=== PATIENT | male | born 1945 | race Caucasian/White ===

== ENCOUNTER → 2016-09-11 | Outpatient (CLI) | payer OTHER, MEDICARE | LOC: FIMAGING 12:40 | PROVIDERS: ATTEND Physician Assistant | DX: R93.2 Abnormal findings on diagnostic imaging of liver and biliary tract (principal); N28.1 Cyst of kidney, acquired ==

== ENCOUNTER 2016-10-21 12:39 | Inpatient (IN) | payer OTHER ==
[2016-10-21 12:51] LABS: % IMMATURE GRANULYOCYTES 0.4 % (0.0-1.1); ABSOLUTE IMMATURE GRANULOCYTES 0.04 10^3/uL (0.00-0.10); ADD DIFF? NO; ADD MORPH? NO; ADD SCAN? NO; ATYPICAL LYMPHOCYTE FLAG 0 (0-99); FRAGMENT RBC FLAG 0 (0-99); HEMATOCRIT 38.9 % (40.0-51.0); HEMOGLOBIN 14.3 g/dL (13.7-17.5); LEFT SHIFT FLG 0 (0-99); LIPEMIA HEMOLYSIS FLAG 90 (0-99); MEAN CELL HEMOGLOBIN 36.6 pg (27.9-34.1); MEAN CELL HEMOGLOBIN CONCENTR. 36.8 g/dL (32.4-36.7); MEAN CELL VOLUME 99.5 fL (81.5-99.8); MEAN PLATELET VOLUME 9.9 fL (8.7-11.7); PLATELET CLUMPS FLAG 0 (0-99); PLATELET COUNT 213 10^3/uL (150-400); RED BLOOD CELL COUNT 3.91 10^6/uL (4.40-6.38); RED CELL DISTRIBUTION WIDTH 11.8 % (11.5-15.2)
--- NOTE | 2016-10-21 12:54 | EDPHY ---
H & P Time Seen by Provider: 10/21/16 12:53 HPI/ROS: CHIEF COMPLAINT: Brought to emergency department on M1 hold for failure to thrive HISTORY OF PRESENT ILLNESS: The patient is brought to the emergency department on an M1 hold secondary to failure to thrive. The patient reportedly lives in the assisted housing. The patient reportedly was unable to walk and found covered in feces after somebody reportedly made a welfare check requests with the police department. The patient reportedly told police he has not been able to get out of bed for several days. The patient reportedly has a longstanding history of chronic low back pain and left hip pain. The patient states he typically walks with a cane and that his green pipefitter Dr. Aguilera diagnosed him with a pinched nerve in his back. The patient denies any history of fall or trauma. The patient is deemed to be somewhat of an unreliable historian as the patient reportedly had many empty boxes of wine in his apartment. The patient is unable to articulate whether he has been compliant with any medications. The patient does complain of severe pain in his left hip with any movement. The patient is unable to tell me what medications he typically takes aside from sympathomimetics for attention deficit hyperactivity disorder. REVIEW OF SYSTEMS: A comprehensive 10 point review of systems is otherwise negative aside from elements mentioned in the history of present illness. Source: Patient Exam Limitations: No limitations - Personal History Tetanus Vaccine Date: 2007 - Medical/Surgical History Hx Asthma: No Hx Chronic Respiratory Disease: No Hx Diabetes: No Hx Cardiac Disease: No Hx Renal Disease: No Hx Cirrhosis: No Hx Alcoholism: No Hx HIV/AIDS: No Hx Splenectomy or Spleen Trauma: No Other PMH: DM2, hertditary hemachromatosis, neuropathy, HTN; Bunions; degenerative disc disease; hernia; ETOH; smoker - Social History Smoking Status: Current every day smoker - Physical Exam Exam: General Appearance: Disheveled male, thin, covered in feces Eyes: Pupils equal and round no pallor or injection ENT, Mouth: Mucous membranes dry Respiratory: There are no retractions, lungs are clear to auscultation Cardiovascular: Regular rate and rhythm Gastrointestinal: Abdomen is soft and nontender, no masses, bowel sounds normal Neurological: A&O, normal motor function, normal sensory exam, normal cranial nerves Skin: Warm and dry, no rashes Musculoskeletal: Exquisite tenderness with any range of motion of the left hip Extremities: symmetrical, full range of motion Psychiatric: Patient is oriented X 3, there is no agitation Constitutional: Initial Vital Signs Temperature (C) 36.6 C 10/21/16 12:58 Heart Rate 100 10/21/16 12:58 Respiratory Rate 18 10/21/16 12:58 Blood Pressure 145/95 H 10/21/16 12:58 O2 Sat (%) 92 10/21/16 12:58 O2 Delivery Mode Room Air Allergies/Adverse Reactions: iodine [Iodine] Allergy (Verified 04/04/14 13:10) metoprolol Allergy (Verified 04/04/14 13:10) shellfish Allergy (Uncoded 04/04/14 13:11) Home Medications: Medication Instructions Recorded Methylphenidate HCl [Ritalin 20mg 20 mg PO TID 10/21/16 (*)] Medical Decision Making - Diagnostics EKG Interpretation: EKG: Complete interpretation has been separately recorded in the [facility] archive. Summary impression: Sinus tachycardia, rate 100, nonspecific ST T wave changes are noted Imaging Results: Imaging Impressions Hip X-Ray 10/21/16 13:32 Impression: Proximal left femoral intertrochanteric fracture with comminuted mildly displaced lesser trochanteric butterfly fragment and varus angulation. Chest X-Ray 10/21/16 13:33 Impression: COPD and old granulomatous disease, with no acute abnormality, or substantial change from 04/04/2014. CT head without contrast: Negative for intracranial hemorrhage or other acute traumatic injury. Images reviewed by myself and discussed with radiologist Dr. Larry Wooten. CT neck without contrast: Negative for acute fracture. Multilevel DJD noted. Images reviewed by myself and discussed with radiologist Dr. Larry Wooten. ED Course/Re-evaluation: The patient presents to the ED with failure to thrive, alcohol intoxication and a left hip fracture of unknown chronicity. The patient will require admission to the hospital. Consultation was made with Dr. Santos from Orthopedic surgery who will see the patient tomorrow. The patient is not been medically cleared for surgery and is currently intoxicated. Consultation is made with the hospitalist service for admission at 3:00 p.m.. The patient did comment on an M1 psychiatric hold which I have vacated is the patient clearly presents to the ED with failure to thrive and a hip fracture and not a primary psychiatric illness. Given the fact the patient is a non reliable historian he was taken for a CT scan of the head and cervical spine which demonstrated no evidence of an acute fracture. There is no evidence of an intracranial hemorrhage. Consultation was made with Dr. Nathan from the hospitalist service who will admit the patient this evening. The patient will not undergo ORIF this evening. Differential Diagnosis: Differential diagnosis considered includes hip fracture, pelvic fracture, alcohol intoxication, critical anemia, GI bleed, arrhythmia, malnutrition, dehydration - Data Points Laboratory Results: Laboratory Results 10/21/16 12:45 10/21/16 12:45 10/21/16 10/21/16 12:45 12:45 WBC 9.22 10^3/uL 10^3/uL (3.80-9.50) RBC 3.91 10^6/uL L 10^6/uL (4.40-6.38) Hgb 14.3 g/dL g/dL (13.7-17.5) Hct 38.9 % L % (40.0-51.0) MCV 99.5 fL fL (81.5-99.8) MCH 36.6 pg H pg (27.9-34.1) MCHC 36.8 g/dL H g/dL (32.4-36.7) RDW 11.8 % % (11.5-15.2) Plt Count 213 10^3/uL 10^3/uL (150-400) MPV 9.9 fL fL (8.7-11.7) Neut % (Auto) 59.1 % % (39.3-74.2) Lymph % (Auto) 24.2 % % (15.0-45.0) [place] % (Auto) 12.4 % % (4.5-13.0) Eos % (Auto) 3.4 % % (0.6-7.6) Baso % (Auto) 0.5 % % (0.3-1.7) Nucleat RBC Rel Count 0.0 % % (0.0-0.2) Absolute Neuts (auto) 5.45 10^3/uL 10^3/uL (1.70-6.50) Absolute Lymphs (auto) 2.23 10^3/uL 10^3/uL (1.00-3.00) Absolute Monos (auto) 1.14 10^3/uL H 10^3/uL (0.30-0.80) Absolute Eos (auto) 0.31 10^3/uL 10^3/uL (0.03-0.40) Absolute Basos (auto) 0.05 10^3/uL 10^3/uL (0.02-0.10) Absolute Nucleated RBC 0.00 10^3/uL 10^3/uL (0-0.01) Immature Gran % 0.4 % % (0.0-1.1) Immature Gran # 0.04 10^3/uL 10^3/uL (0.00-0.10) Sodium 133 mEq/L L mEq/L (134-144) Potassium 5.1 mEq/L mEq/L (3.5-5.2) Chloride 95 mEq/L L mEq/L (97-110) Carbon Dioxide 18 mEq/l L mEq/l (22-31) Anion Gap 20 mEq/L H mEq/L (8-16) BUN 14 mg/dL mg/dL (7-23) Creatinine 0.8 mg/dL mg/dL (0.7-1.3) Estimated GFR > 60 Glucose 107 mg/dL H mg/dL (70-100) Calcium 9.1 mg/dL mg/dL (8.5-10.4) Total Bilirubin 3.0 mg/dL H mg/dL (0.1-1.4) Conjugated Bilirubin 0.7 mg/dL H mg/dL (0.0-0.5) Unconjugated Bilirubin 2.3 mg/dL H mg/dL (0.0-1.1) AST 76 IU/L H IU/L (17-59) ALT 65 IU/L IU/L (21-72) Alkaline Phosphatase 115 IU/L IU/L (38-126) Total Protein 6.8 g/dL g/dL (6.3-8.2) Albumin 4.0 g/dL g/dL (3.5-5.0) Ethyl Alcohol 122 mg/dL H mg/dL (0-10) Medications Given: Discontinued Medications Sodium Chloride (Ns) 1,000 mls @ 3,000 mls/hr IV ONCE ONE Stop: 10/21/16 15:33 Last Admin: 10/21/16 15:41 Dose: 1,000 mls Morphine Sulfate (Morphine) 5 mg IVP EDNOW ONE Stop: 10/21/16 14:38 Last Admin: 10/21/16 14:47 Dose: Not Given Morphine Sulfate (Morphine) 4 mg IVP EDNOW ONE Stop: 10/21/16 14:41 Last Admin: 10/21/16 14:41 Dose: 4 mg Morphine Sulfate (Morphine) 4 mg IVP EDNOW ONE Stop: 10/21/16 16:12 Last Admin: 10/21/16 16:24 Dose: 4 mg Departure - Departure Disposition: [facility] Acute Clinical Impression: Alcoholic intoxication, Fracture, intertrochanteric, left femur Condition: Fair
[2016-10-21 13:03] LABS: ALANINE AMINOTRANSFERASE 65 IU/L (21-72); ALKALINE PHOSPHATASE 115 IU/L (38-126); ANION GAP 20 mEq/L (8-16); ASPARTATE AMINOTRANSFERASE 76 IU/L (17-59); CALCIUM 9.1 mg/dL (8.5-10.4); CARBON DIOXIDE 18 mEq/l (22-31); CHLORIDE 95 mEq/L (97-110); CREATININE 0.8 mg/dL (0.7-1.3); ETHANOL SERUM 122 mg/dL (0-10); GLOMERULAR FILTRATION RATE > 60; GLUCOSE 107 mg/dL (70-100); POTASSIUM 5.1 mEq/L (3.5-5.2); SODIUM 133 mEq/L (134-144); TOTAL PROTEIN 6.8 g/dL (6.3-8.2)
[2016-10-21 13:12] LABS: BILIRUBIN-CONJUGATED 0.7 mg/dL (0.0-0.5); BILIRUBIN-UNCONJUGATED 2.3 mg/dL (0.0-1.1)
[2016-10-21] MEDS ORDERED: NS 1,000 ML IV ONE (15:14)
[2016-10-21] MEDS ORDERED: ONDANSETRON DISINTEGRATING 4 MG TAB PO PRN (15:14)
[2016-10-21] MEDS ORDERED: ACETAMINOPHEN 325 MG TAB PO PRN (15:14)
[2016-10-21] MEDS ORDERED: ONDANSETRON 4 MG/2 ML VIAL IVP PRN (15:14)
[2016-10-21] MEDS ORDERED: LORazepam 2 MG/ML INJ IVP PRN (15:17)
--- NOTE | 2016-10-21 15:33 | CPEKG ---
Heart Rate: 100 RR Interval: 600 P-R Interval: 176 QRSD Interval: 70 QT Interval: 368 QTC Interval: 475 P [place]: 69 QRS [place]: -22 T Wave [place]: 80 EKG Severity - BORDERLINE ECG - EKG Impression: SINUS TACHYCARDIA EKG Impression: BORDERLINE LEFT AXIS DEVIATION EKG Impression: LOW VOLTAGE IN FRONTAL LEADS EKG Impression: BORDERLINE T ABNORMALITIES, ANT-LAT LEADS Electronically Signed By: Carrington Calixto 21-Oct-2016 15:34:13
--- NOTE | 2016-10-21 15:45 | SOAPPROG ---
GEMA Progress Note Assessment/Plan: Assessment: Left hip fx Plan: I will get a CT to eval the full extent and chronicity will require surgery likely tomorrow if can be medically cleared full consult to follow 10/21/16 15:44 Objective: Vital Signs Temp Pulse Resp BP Pulse Ox 36.6 C 100 18 145/95 H 92 10/21/16 12:58 10/21/16 12:58 10/21/16 12:58 10/21/16 12:58 10/21/16 12:58 ICD10 Worksheet Patient Problems: Problems Problem Status Onset Alcoholic intoxication Acute Fracture, intertrochanteric, left femur Acute ADD (attention deficit disorder) Acute Alcohol withdrawal Acute Chest pain Acute
--- NOTE | 2016-10-21 17:16 | GHP ---
[f rep st] HISTORY AND PHYSICAL DATE OF ADMISSION: 10/21/2016 CHIEF COMPLAINT: Found down. HISTORY OF PRESENT ILLNESS: This is a 71-year-old male with a history of alcohol abuse, who had a w elfare check performed by police today on the request of loved ones. The patient was found confused , covered in feces, complaining of pain. The patient was brought to the emergency department [facility] to complain of pain without clear reportable trauma or fall. The patient was found to have a p roximal left femur fracture, and is being admitted for orthopedic consultation. In the emergency de partment, the patient is endorsing pain of the left leg. Denies any chest pain. Denies shortness o f breath. Denies nausea. Denies vomiting. Denies dysuria, recent hematuria, lower extremity edema , or known rashes. The patient reports he has been drinking steadily with also recreational use of marijuana recently, normal levels. He is not able to give me a clear picture of what his most recen t history has been in the past 24-72 hours. PAST MEDICAL HISTORY: 1. Alcohol abuse with history of withdrawal. 2. Diabetes mellitus. 3. Hereditary hemochromatosis. 4. Chronic neuropathy. 5. Hypertension. 6. Degenerative disk disease. SOCIAL HISTORY: The patient lives alone. Drinks alcohol heavily, although he reports a half a pint of red wine a day. Smokes a pack of cigarettes per week. Denies illicit drugs, but does report chel th eating and smoking marijuana recreationally. FAMILY HISTORY: Positive for alcoholism in the father, as well as diabetes. ADVANCED DIRECTIVES: The patient is full cor, full tube. REVIEW OF SYSTEMS: A 10-point review of systems is negative with the exception of that reported in the HPI. PHYSICAL EXAMINATION: VITAL SIGNS: Blood pressure 144/96, heart rate 100, respiratory rate 16, 92% on room air 36.7. GENERAL: This is a thin appearing middle-aged male lying flat in bed. HEENT: Notable for dry mucous membranes. Eye exam is negative for any icterus. CARDIAC: The patient is t achycardic, but regular. PULMONARY: Good respiratory effort. Clear to auscultation bilaterally. GASTROINTESTINAL: Positive bowel sounds. ABDOMEN: Soft and nontender. MUSCULOSKELETAL: The patient is tender on passive range of motion of the left leg. No edema is diana reciated. SKIN: The patient has scattered excoriations. NEUROLOGIC: The patient does not have a tremor actively or tongue fasciculations. PSYCHIATRIC: He seems anxious on my examination. DATA: White count 9.2, hematocrit 38.9, platelets of 211, sodium 133, creatinine 0.8, anion gap of 20, bilirubin of 3, AST of 76, ethyl alcohol of 122. Hip x-ray on the left, which I personally reviewed and interpreted, does show a proximal femur fract ure. ASSESSMENT AND PLAN: This is a 71-year-old male with alcoholism, presenting with hip fracture. 1. Acute left intertrochanteric fracture. The patient is not able to give us a clear timeline, how ever does have acute pain. We will order CT imaging per Dr. Santos, and plan for surgical intervent ion tomorrow. We will see the patient today and make n.p.o. after midnight for anticipated intraope rative repair. 2. Alcohol abuse. The patient does not appear to be actively be withdrawn, but does describe a his tory of alcohol withdrawal in the past. I suspect he drinks far more than the half pint of wine he is reporting. We will schedule Librium [address] and [address] the patient on CIWA protocol symptom dosing. Give IV thiamin, and monitor his laboratories closely. My hope is with Librium we can keep him stable in the next 24 hours so that he is prepared for the operating room. 3. Anion gap metabolic acidosis. I suspect this is likely starvation ketosis. We will aggressivel y fluid resuscitate and follow his labs in the morning. 4. Diabetes mellitus. The patient reports being diet controlled. We will follow his blood sugars, currently 107. We will avoid sliding scale if we can. Treat with low-dose lispro. 5. Hyponatremia, acute, suspect volume related. We will fluid resuscitate with normal saline and r echeck in the morning. 6. Mild transaminitis, suspect this is alcohol related liver dysfunction. 7. Prophylaxis: We will give a dose of Lovenox today, and then hold for the operating room tomorro w. 8. Diet: Regular now, n.p.o. after midnight. DISPOSITION: I expect greater than 2 midnights, as the patient is presenting with acute hip fractur e requiring surgical intervention. I have discussed the case with the emergency room physician. Th e patient will be triaged to the medical-surgical floor for care. /[id number]/MODL
[2016-10-21] MEDS: chlordiazePOXIDE 25 MG CAP PO SCH ×2 (17:20→21:25)
[2016-10-21] MEDS: HYDROCODONE/APAP 5/325 TAB PO PRN ×2 (17:20→22:38)
[2016-10-21] MEDS: THIAMINE HCL 500 MG in NS 100 ML IV SCH (17:22)
[2016-10-21] MEDS ORDERED: D50W 25 GM/50 ML SYR IVP PRN (19:28)
--- NOTE | 2016-10-21 21:02 | GCON ---
[f rep st] CONSULTATION DATE OF CONSULTATION: 10/21/2016 DIAGNOSIS: Left hip fracture. CHIEF COMPLAINT: Left hip fracture. HISTORY OF PRESENT ILLNESS: This is a 71-year-old male, who was found in his apartment intoxicated, and with empty bottles of wine scattered about his apartment. He is unable to ambulate and was bro ught in for evaluation. He was diagnosed in the emergency room with a left trochanteric hip fractur e. Per report, his self-care and living situation were quite poor. He is admitted to the hospital by the hospitalist service. He complains really of just left hip pain. He does not know when he ma y have fractured it. He says as of 2 days ago he was able to bear weight. He has had pain in the h ip now for a number of months. He denies being able to bear weight now. PAST MEDICAL HISTORY: Attention deficit disorder and alcoholism. PAST SURGICAL HISTORY: He cannot recall any surgeries that he has had, though he thinks he may have had some. ALLERGIES: Iodine. MEDICATIONS: He takes methylphenidate for ADD. FAMILY HISTORY: He is unsure of his family history. SOCIAL HISTORY: Significant for alcoholism. REVIEW OF SYSTEMS: Negative except for the HPI. It is difficult to obtain a complete review of sys tems on him. PHYSICAL EXAMINATION: GENERAL: He is alert. He is chronically ill appearing. He is slightly conf used. HEAD: Normocephalic and atraumatic. His eyes are equal and reactive. His mouth shows moist mucous membranes. NECK: Supple. LUNGS: Good inspiratory effort. HEART: Regular rate and rhythm . ABDOMEN: Soft. EXTREMITIES: Upper extremities are without abrasion or abnormality. He can mov e his shoulders, elbows, and hands well. He has 5/5 strength moving his fingers. His left hip is s itting externally rotated. Any attempt to touching this causes exquisite pain. He does have pain r adiating down his femur. He has no tenderness lower in his knee or his tibia or his foot. He can w iggle his toes. His right lower extremity he can move without pain. DIAGNOSTIC STUDIES: His plain films and subsequent CT scan show an intertrochanteric fracture of th e left hip, as well as DJD. I do believe this to be only somewhat acute based on the imaging. ASSESSMENT: Left intertrochanteric hip fracture. PLAN: He is admitted to the hospitalist service. He will undergo a medical workup. We will plan o n operative intervention for the hip fracture, if he is medically stable, likely tomorrow. This rach l involve a left TF and nail. I talked to him about the risks and benefits of surgery, and he does wish to proceed at this time. Discussed the risks of nonunion, malunion, continued pain, need for r eplacement, heart attack, stroke, and even , as well as a blood clot. He elected to proceed. /[id number]/MODL
[2016-10-22 02:22] LABS: % IMMATURE GRANULYOCYTES 0.3 % (0.0-1.1); ABSOLUTE IMMATURE GRANULOCYTES 0.02 10^3/uL (0.00-0.10); ADD DIFF? NO; ADD MORPH? NO; ADD SCAN? NO; ATYPICAL LYMPHOCYTE FLAG 0 (0-99); FRAGMENT RBC FLAG 0 (0-99); HEMATOCRIT 34.8 % (40.0-51.0); HEMOGLOBIN 12.6 g/dL (13.7-17.5); LEFT SHIFT FLG 0 (0-99); LIPEMIA HEMOLYSIS FLAG 90 (0-99); MEAN CELL HEMOGLOBIN 36.7 pg (27.9-34.1); MEAN CELL HEMOGLOBIN CONCENTR. 36.2 g/dL (32.4-36.7); MEAN CELL VOLUME 101.5 fL (81.5-99.8); MEAN PLATELET VOLUME 9.8 fL (8.7-11.7); PLATELET CLUMPS FLAG 0 (0-99); PLATELET COUNT 175 10^3/uL (150-400); RED BLOOD CELL COUNT 3.43 10^6/uL (4.40-6.38)
[2016-10-22 02:34] LABS: ANION GAP 11 mEq/L (8-16); CALCIUM 7.8 mg/dL (8.5-10.4); CARBON DIOXIDE 21 mEq/l (22-31); CHLORIDE 101 mEq/L (97-110); CREATININE 0.6 mg/dL (0.7-1.3); GLOMERULAR FILTRATION RATE > 60; GLUCOSE 110 mg/dL (70-100); MAGNESIUM 1.7 mg/dL (1.6-2.3); POTASSIUM 4.8 mEq/L (3.5-5.2); SODIUM 133 mEq/L (134-144)
[2016-10-22] MEDS: HYDROCODONE/APAP 5/325 TAB PO PRN ×4 (05:40→23:13)
[2016-10-22] MEDS: ENOXAPARIN 40 MG/0.4 ML SYR SC SCH (07:26)
[2016-10-22] MEDS: INSULIN LISPRO 100 UNIT/ML SC SCH ×3 (07:41→19:58)
[2016-10-22] MEDS: NICOTINE 14 MG/24 HR PATCH TD SCH (08:04)
[2016-10-22] MEDS: chlordiazePOXIDE 25 MG CAP PO SCH ×3 (08:04→23:14)
[2016-10-22] MEDS: THIAMINE HCL 500 MG in NS 100 ML IV SCH (09:37)
--- NOTE | 2016-10-22 14:36 | HOSPPROG ---
Hospitalist Progress Note Assessment/Plan: DIAGNOSES: # INTERTROCH HIP FX # ALCOHOL ABUSE -w HR 105 he may be having mild withdrawal at present; is getting scheduled benzo # FAILURE TO THRIVE # METABOLIC ACIDOSIS # HYPONATREMIA # DIABETES MELLITUS? # ?ADD PLANS: -continue CIWA -thiamine daily -DVT proph -care of fx per ortho, to OR today -will likely need eventual SNF SUBJECTIVE: states pain "not too bad" seems disoriented however denies sob or chest sxs no nausea OBJECTIVE: vitals: some mild HTN and borderline tachycardia, otherwise stable Exam: alert, relaxed, no tremor, somewhat disoriented and delusional skin warm dry no jaundice resps easy lungs clear heart reg no edema Lab data: mild hyperglycemia mild hyponatremia otherwise stable Objective: Vital Signs Temp Pulse Resp BP Pulse Ox 37.0 C 105 H 14 144/97 H 93 10/22/16 11:22 10/22/16 11:22 10/22/16 11:22 10/22/16 11:22 10/22/16 11:22 Laboratory Results 10/22/16 02:15 10/22/16 02:15 10/21/16 10/22/16 10/23/16 06:59 06:59 06:59 Intake Total 600 100 Output Total 1175 100 Balance -575 0 ICD10 Worksheet Patient Problems: Problems Problem Status Onset Alcoholic intoxication Acute Fracture, intertrochanteric, left femur Acute ADD (attention deficit disorder) Acute Alcohol withdrawal Acute Chest pain Acute
[2016-10-22] MEDS ORDERED: ceFAZolin 2 GM/DEXTROSE 100 ML IV ONE (14:58)
[2016-10-22] MEDS ORDERED: BUPIVACAINE/EPI 0.5% 30 ML SDV ONE (15:59)
--- NOTE | 2016-10-22 16:34 | SOAPPROG ---
SOAP Progress Note Assessment/Plan: Assessment: Left hip fx Plan: OR for TFN nail on withdrawl protocol Subjective: pain in left hip Objective: Vital Signs Temp Pulse Resp BP Pulse Ox 36.6 C 107 H 16 136/98 H 94 10/22/16 15:16 10/22/16 16:00 10/22/16 16:00 10/22/16 16:00 10/22/16 16:00 Laboratory Results 10/22/16 02:15 10/22/16 02:15 10/21/16 10/22/16 10/23/16 05:59 05:59 05:59 Intake Total 600 100 Output Total 1175 400 Balance -575 -300 left hip held in external rotation ICD10 Worksheet Patient Problems: Problems Problem Status Onset Alcoholic intoxication Acute Fracture, intertrochanteric, left femur Acute ADD (attention deficit disorder) Acute Alcohol withdrawal Acute Chest pain Acute
--- NOTE | 2016-10-22 16:40 | PDANEPAE ---
ANE History of Present Illness hip fracture, L ANE Past Medical History - Cardiovascular History Hx Hypertension: Yes - Pulmonary History Hx Oxygen in Use at Home: No Hx Sleep Apnea: No Sleep Apnea Screening Result - Last Documented: Positive - Endocrine History Hx Diabetes: No - Neurological & Psychiatric Hx Hx Neurological and Psychiatric Disorders: Yes Neurological / Psychiatric History Comment: Hx of ADD. Patient reports problems remembering - GI History GERD: no Gastrointestinal History Comment: chronic alcohol use: about 1/2 pint of wine/ day - Chronic Pain History Chronic Pain: Yes ANE Review of Systems - Exercise capacity Exercise capacity: >=4 METS ANE Patient History - Allergies Allergies/Adverse Reactions: iodine [Iodine] Allergy (Verified 04/04/14 13:10) metoprolol Allergy (Verified 04/04/14 13:10) shellfish Allergy (Uncoded 04/04/14 13:11) - Home Medications Home Medications: Methylphenidate HCl [Ritalin 20mg (*)] 20 mg PO TID 10/21/16 [Last Taken ] - NPO status NPO Since - Liquids (Date): 10/22/16 NPO Since - Liquids (Time): 00:00 NPO Since - Solids (Date): 10/22/16 NPO Since - Solids (Time): 00:00 - Smoking Hx Smoking Status: Current every day smoker (smoking since age 16, reports about 1/ 2 ppw for the last 15 years) ANE Labs/Vital Signs - Labs Result Diagrams: 10/22/16 02:15 10/22/16 02:15 - Vital Signs Blood Pressure: 136/98 Heart Rate: 107 Respiratory Rate: 16 O2 Sat (%): 94 Height: 182.88 cm Weight: 76.975 kg ANE Physical Exam - Airway Neck exam: FROM Mouth exam: poor dentition - Pulmonary Pulmonary: clear to auscultation - Cardiovascular Cardiovascular: regular rate and rhythym - ASA Status ASA Status: III ANE Anesthesia Plan Anesthesia Plan: general endotracheal anesthesia
[2016-10-22] MEDS ORDERED: LR 1,000 ML IV ONE (16:42)
[2016-10-22] MEDS ORDERED: PROPOFOL 200 MG/20 ML VIAL ONE (16:53)
[2016-10-22] MEDS ORDERED: fentaNYL 100 MCG/2 ML INJ ONE ×3 (16:53→18:56)
[2016-10-22] MEDS ORDERED: ROCURONIUM 50 MG/5 ML VIAL ONE (16:54)
[2016-10-22] MEDS ORDERED: PHENYLEPHRINE HCL 100 MCG/ML SYR ONE (17:14)
[2016-10-22] MEDS ORDERED: ONDANSETRON 4 MG/2 ML VIAL ONE (18:03)
[2016-10-22] MEDS ORDERED: GLYCOPYRROLATE 0.2 MG/1 ML VIAL ONE (18:06)
[2016-10-22] MEDS ORDERED: NEOSTIGMINE METHYLSULFATE 5 MG/5 ML SYR ONE (18:06)
--- NOTE | 2016-10-22 18:24 | POSTOPPROG ---
Post Op Note Date of Operation: 10/22/16 Surgeon: Saud Santos Anesthesiologist: betty Pre-op Diagnosis: left IT fx Post-op Diagnosis: same Indication: above Procedure: ORIF left hip fracture TFN Findings: fx Inf/Abcess present in the surg proc area at time of surgery?: No EBL: Minimal
[2016-10-22] MEDS ORDERED: NALOXONE HCL 0.4 MG/ML INJ IVP PRN (18:29)
[2016-10-22] MEDS: fentaNYL 100 MCG/2 ML INJ IVP PRN ×2 (18:56→19:02)
--- NOTE | 2016-10-22 19:58 | POSTANESTH ---
Post Anesthetic Evaluation Cardiovascular Status: Similar to Pre-Op Cond Respiratory Status: Similar to Pre-op Cond. Level of Consciousness/Mental Status: Mildly Sleepy, Arousable Pain Control: Adequate, Prn Tx Ordered Nausea/Vomiting Control: Adequate, Prn Tx Ordered Complications Possibly Related to Anesthesia: None Noted
[2016-10-22] MEDS ORDERED: PNEUMOC 13-VAL CONJ-DIP CRM/PF 0.5 ML SYR IM ONE (23:46)
--- NOTE | 2016-10-23 02:11 | GOP ---
[f rep st] OPERATIVE REPORT DATE OF OPERATION: 10/22/2016 SURGEON: Saud Santos MD ACCOUNTING MACHINE MECHANIC: None. ANESTHESIA: General. PREOPERATIVE DIAGNOSIS: Left intertrochanteric hip fracture. POSTOPERATIVE DIAGNOSIS: Left intertrochanteric hip fracture. PROCEDURE PERFORMED: Open reduction and internal fixation left intertrochanteric hip fracture. FINDINGS: ESTIMATED BLOOD LOSS: 20 mL. INDICATIONS: A 71-year-old male who was brought in, found intoxicated in his apartment, unable to ambulate. He is unsure when he broke his hip but was diagnosed with a hip fracture. I did feel this was at least semi acute in talking to him. Exquisite pain. Counseled risks and benefits of operative procedure, including nonunion, malunion, pain, need for replacement, failure, refracture. Elected to proceed. Informed consent was obtained. All questions were answered. He was marked preoperatively. DESCRIPTION OF PROCEDURE: He was taken to the preoperative suite. Anesthesia was induced. Ancef was administered. He was positioned on the fracture table. A time-out was performed verifying side, site, agreement by everyone on the team. I was able to reduce the fracture by using the fracture table to manipulate the fragment, centrally rotate using traction. Satisfied with this on the AP and lateral x-rays, prepped and draped, began the surgery by establishing that side of the guidepin, made incision in this area. I checked this on AP and lateral x-ray and the guidepin on the canal. Checked this on x- ray, used the anterior reamer. Selected the 11 mm nail, placed this down the canal. Brought this to the proper height, used the trocar for the distal blade. Brought this to bone. Placed a guidepin up this and checked this on AP and lateral x-ray, and then used a reamer to ream this. Selected a 105 blade, and this was placed into place. The blade was locked in place and dynamically locked. A distal interlock screw was drilled using a trocar and sleeve and placed. Final x-rays were taken. The construct was stable. It was closed after irrigation with 0 Vicryl, 2-0 Vicryl, 3-0 Monocryl, Dermabond, was taken to PACU in stable condition. IMPLANTS: Synthes TFN nail, 11 mm short nail, and a 40 mm locking screw. COMPLICATIONS: None. DRAINS: None specimen. CONDITION: Stable. /[id number]/MODL MTDD
[2016-10-23] MEDS: HYDROCODONE/APAP 5/325 TAB PO PRN ×4 (03:05→16:04)
[2016-10-23 05:53] LABS: MAGNESIUM 1.7 mg/dL (1.6-2.3)
[2016-10-23] MEDS: THIAMINE HCL 500 MG in NS 100 ML IV SCH (07:56)
[2016-10-23] MEDS: ENOXAPARIN 40 MG/0.4 ML SYR SC SCH (08:03)
[2016-10-23] MEDS: chlordiazePOXIDE 25 MG CAP PO SCH ×3 (08:03→21:42)
[2016-10-23] MEDS: NICOTINE 14 MG/24 HR PATCH TD SCH (08:03)
[2016-10-23] MEDS: INSULIN LISPRO 100 UNIT/ML SC SCH ×3 (08:59→16:26)
--- NOTE | 2016-10-23 13:05 | SOAPPROG ---
SOAP Progress Note Assessment/Plan: Assessment: Left hip fx Plan: TFN 10/22 wbat ice rom as tolerated ptOT dvt prophalxis 10/23/16 13:04 Subjective: pain in hip Objective: Vital Signs Temp Pulse Resp BP Pulse Ox 36.8 C 109 H 14 124/95 H 92 10/23/16 12:12 10/23/16 12:48 10/23/16 12:12 10/23/16 12:12 10/23/16 12:48 Laboratory Results 10/22/16 02:15 10/22/16 02:15 10/22/16 10/23/16 10/24/16 05:59 05:59 05:59 Intake Total 600 1030 Output Total 1175 1200 Balance -575 -170 dressing dry nvi ICD10 Worksheet Patient Problems: Problems Problem Status Onset Alcoholic intoxication Acute Fracture, intertrochanteric, left femur Acute ADD (attention deficit disorder) Acute Alcohol withdrawal Acute Chest pain Acute
--- NOTE | 2016-10-23 18:00 | HOSPPROG ---
Hospitalist Progress Note Assessment/Plan: DIAGNOSES: # INTERTROCH HIP FX # ALCOHOL ABUSE, MILD ALCOHOL WITHDRAWAL CURRENTLY ON BENZODIAZEPINE - still some tachycardia and delusional thoughts # FAILURE TO THRIVE # METABOLIC ACIDOSIS # HYPONATREMIA # DIABETES MELLITUS? # ?ADD PLANS: -continue CIWA -thiamine daily -DVT proph -OT and PT -will likely need eventual SNF - I did talk with him today about his alcohol use in the dangers that presents for him and he does understand this and agrees that he should try to quit at this time SUBJECTIVE: status post nailing of femur yesterday, pain not better in bed but hurts quite a bit when he stands on the leg No shortness of breath chest pain Not anxious Eating OBJECTIVE: vitals: some tachycardia, otherwise stable CIWA scores low so far on current scheduled benzodiazepine Exam: alert, relaxed, no tremor, Overall better oriented but still with some delusions skin warm dry no jaundice resps easy lungs clear heart reg no edema Objective: Vital Signs Temp Pulse Resp BP Pulse Ox 36.5 C 102 H 19 109/83 H 88 L 10/23/16 15:41 10/23/16 15:41 10/23/16 15:41 10/23/16 15:41 10/23/16 15:41 Laboratory Results 10/22/16 02:15 10/22/16 02:15 10/22/16 10/23/16 10/24/16 06:59 06:59 06:59 Intake Total 600 1030 100 Output Total 1175 1200 Balance -575 -170 100 ICD10 Worksheet Patient Problems: Problems Problem Status Onset Alcoholic intoxication Acute Fracture, intertrochanteric, left femur Acute ADD (attention deficit disorder) Acute Alcohol withdrawal Acute Chest pain Acute
[2016-10-24] MEDS: HYDROCODONE/APAP 5/325 TAB PO PRN ×5 (00:25→17:52)
[2016-10-24 05:37] LABS: MAGNESIUM 1.7 mg/dL (1.6-2.3)
--- NOTE | 2016-10-24 07:32 | SOAPPROG ---
SOAP Progress Note Assessment/Plan: Assessment: Left hip fx Plan: TFN 10/22 wbat ice rom as tolerated ptOT dvt prophalxis may d/c when medically indicated, f/u with me in 1 week [phone] for appt 10/23/16 13:04 10/24/16 07:31 Subjective: min pain Objective: Vital Signs Temp Pulse Resp BP Pulse Ox 36.7 C 87 16 132/91 H 92 10/24/16 07:21 10/24/16 07:21 10/24/16 07:21 10/24/16 07:21 10/24/16 07:21 Laboratory Results 10/22/16 02:15 10/22/16 02:15 10/23/16 10/24/16 10/25/16 05:59 05:59 05:59 Intake Total 1030 500 Output Total 1200 402 Balance -170 98 dressing dry can move hip ICD10 Worksheet Patient Problems: Problems Problem Status Onset Alcoholic intoxication Acute Fracture, intertrochanteric, left femur Acute ADD (attention deficit disorder) Acute Alcohol withdrawal Acute Chest pain Acute
[2016-10-24] MEDS: INSULIN LISPRO 100 UNIT/ML SC SCH ×3 (08:33→17:42)
[2016-10-24] MEDS: NICOTINE 14 MG/24 HR PATCH TD SCH (09:30)
[2016-10-24] MEDS: ENOXAPARIN 40 MG/0.4 ML SYR SC SCH (09:35)
[2016-10-24] MEDS: chlordiazePOXIDE 25 MG CAP PO SCH (09:35)
[2016-10-24] MEDS: THIAMINE HCL 100 MG TAB PO SCH (09:35)
--- NOTE | 2016-10-24 14:41 | HOSPPROG ---
Hospitalist Progress Note Assessment/Plan: DIAGNOSES: # INTERTROCH HIP FX # ALCOHOLISM, MILD ALCOHOL WITHDRAWAL CURRENTLY ON BENZODIAZEPINE - tachycardia and loosens resolve, is relaxed, at this point will try off benzodiazepine # FAILURE TO THRIVE # METABOLIC ACIDOSIS # HYPONATREMIA # DIABETES MELLITUS? # ?ADD PLANS: -continue CIWA, trial off benzodiazepine -thiamine daily -DVT proph -OT and PT -will likely need eventual SNF -I have reviewed with him today his alcohol use and the dangers that presents for him and he does understand this and agrees that he should try to quit at this time DISPOSITION: Would like to observe 1 day off benzodiazepine before sending him to [facility] facility SUBJECTIVE: Still with quite a bit of pain with any movement of his leg but is working with PT No nausea vomiting chest pain or shortness of breath OBJECTIVE: vitals: blood pressure pulse of stabilized nicely, otherwise normal without fever ROGELIO scores low so far on current scheduled benzodiazepine Exam: alert, relaxed, no tremor, better oriented today No tremor skin warm dry no jaundice resps easy lungs clear heart reg mild edema of his leg laboratory data: Sugars remain in good range Objective: Vital Signs Temp Pulse Resp BP Pulse Ox 36.7 C 97 16 124/96 H 80 L 10/24/16 11:12 10/24/16 11:12 10/24/16 11:12 10/24/16 11:12 10/24/16 11:12 Laboratory Results 10/22/16 02:15 10/22/16 02:15 10/23/16 10/24/16 10/25/16 06:59 06:59 06:59 Intake Total 1030 500 Output Total 1200 402 Balance -170 98 ICD10 Worksheet Patient Problems: Problems Problem Status Onset Alcoholic intoxication Acute Fracture, intertrochanteric, left femur Acute ADD (attention deficit disorder) Acute Alcohol withdrawal Acute Chest pain Acute
[2016-10-25] MEDS: HYDROCODONE/APAP 5/325 TAB PO PRN ×4 (00:59→15:33)
[2016-10-25 08:03] VITALS: BP 127/82; RESP 16; TEMP 97.7; O2SAT 92
--- NOTE | 2016-10-25 08:34 | SOAPPROG ---
SOAP Progress Note Assessment/Plan: Assessment: Left hip fx Plan: TFN 10/22 wbat ice rom as tolerated ptOT dvt prophalxis may d/c when medically indicated, f/u with me in 1 week [phone] for appt 10/23/16 13:04 10/24/16 07:31 Subjective: no pain in hip when in bed Objective: Vital Signs Temp Pulse Resp BP Pulse Ox 36.5 C 90 16 127/82 H 92 10/25/16 08:02 10/25/16 08:02 10/25/16 08:02 10/25/16 08:02 10/25/16 08:02 Laboratory Results 10/22/16 02:15 10/22/16 02:15 10/24/16 10/25/16 10/26/16 05:59 05:59 05:59 Intake Total 500 1100 Output Total 402 140 Balance 98 1100 -140 dressing dry ICD10 Worksheet Patient Problems: Problems Problem Status Onset Alcoholic intoxication Acute Fracture, intertrochanteric, left femur Acute ADD (attention deficit disorder) Acute Alcohol withdrawal Acute Chest pain Acute
[2016-10-25] MEDS: ENOXAPARIN 40 MG/0.4 ML SYR SC SCH (09:36)
[2016-10-25] MEDS: THIAMINE HCL 100 MG TAB PO SCH (09:37)
[2016-10-25] MEDS: NICOTINE 14 MG/24 HR PATCH TD SCH (09:37)
[2016-10-25] MEDS: INSULIN LISPRO 100 UNIT/ML SC SCH ×2 (09:38→12:22)
--- NOTE | 2016-10-25 14:44 | PDIAF ---
- Diagnosis Diagnosis: intertrochanteric hip fracture, sp nail; alcoholism; ADD Code Status: Full Code - Medication Management Discharge Medications: Medications to Continue on Transfer Methylphenidate HCl [Ritalin 20mg (*)] 20 mg PO TID 10/21/16 [Last Taken ] Hydrocodone/APAP 5/325 [[place] 5/325 (*)] 1 - 2 tab PO Q4HRS PRN #0 tab 10/24/16 [Last Taken Unknown] Thiamine HCl [Vitamin B-1] 100 mg PO DAILY tab 10/24/16 [Last Taken Unknown] Discharge Medications: Refer to the Discharge Home Medication list for PRN reason. - Orders Services needed: Registered Nurse, Certified Program/Music Director, Master [employer] Traffic [employer] Equipment Repairer , Physical Therapy, Occupational Therapy Diet Recommendation: no restrictions on diet, other (should have ensure or equivalent until taking sufficient food) Diet Texture: Regular Texture Diet Activity/Weight Bearing Restrictions: as tolerated Equipment: walker Additional: Follow up with Dr tara Santos in 1 week, ortho, [phone] Santos for any issues related to wound or his hip. - Follow Up Care Current Providers and Referrals: Tara Santos MD [Medical Doctor] -
--- NOTE | 2016-10-25 14:49 | PDDCSUM ---
Discharge Summary Discharge Summary: DISCHARGE DIAGNOSES: -Left intratrochanteric hip fracture, status post intramedullary nail fixation -Mild alcohol withdrawal -Alcoholism CONSULTANTS: Dr. Saud Santos PROCEDURES: ORIF of left hip fracture, with intramedullary nail HOSPITAL COURSE SUMMARY: This patient came in having been found on the floor at his home with severe hip pain. He was found to have an intratrochanteric left hip fracture requiring repair. He went to the operating room with Dr. Santos and had intramedullary nail fixation. This was uncomplicated. His hospital course has been unremarkable other than the expected pain and difficulty with mobility. The patient does drink quite heavily and did have some very mild alcohol withdrawal here which is resolved. He was treated with thiamin daily. He understands that alcohol is not going to work for him and he does wish to continue sobriety at this time. he has worked well with physical therapy here in the hospital. At this time he is stable for discharge to the hospital but will need ongoing therapy and so will be transferred to a local nursing facility for that. PENDING TEST RESULTS: None MEDICATION CHANGES: Pain medicine and antiemetics and thiamin ordered FOLLOW-UP PLAN: With facility physician at nursing center With Dr. Santos in 1 week Greater than 35 minutes bedside and care coordination time today
[2016-10-25 14:52] VITALS: PULSE 110
== END 2016-10-25 16:18 | DRG 481 ==
LOC: EDUNIT# → F3N 16:52
PROVIDERS: ADMIT Hospitalist; ATTEND Internal Medicine
PROC: 0QS706Z Reposition Left Upper Femur with Intramedullary Internal Fixation Device, Open Approach (ICD-10-PCS; principal; 2016-10-22 16:30)
DX: S72.142A Displaced intertrochanteric fracture of left femur, initial encounter for closed fracture (principal); F10.239 Alcohol dependence with withdrawal, unspecified; R62.7 Adult failure to thrive; E87.2 Acidosis; E87.1 Hypo-osmolality and hyponatremia; E11.9 Type 2 diabetes mellitus without complications; I10 Essential (primary) hypertension; G47.33 Obstructive sleep apnea (adult) (pediatric); F98.8 Other specified behavioral and emotional disorders with onset usually occurring in childhood and adolescence; G62.9 Polyneuropathy, unspecified
CPT/HCPCS: 96374; 97162-GP; 97166-GO; 97530-GO; 97530-GP; 97535-GO; C1713; C1769; G0480; G8978-GP-CL; G8979-GP-CJ; G8987-GO-CL; G8988-GO-CJ; J0690; J1650; J2060; J2370; J2405; J2704; J2710; J3010; J3411

== ENCOUNTER → 2018-05-14 | Outpatient (CLI) | payer OTHER, MEDICAID | LOC: FIMAGING 06:49 | PROVIDERS: ATTEND Physician Assistant | DX: K70.9 Alcoholic liver disease, unspecified (principal) ==